=== PATIENT | female | born 1995 | race African-American/Black ===

== ENCOUNTER 2016-10-06 22:25 | Emergency (ER) | payer OTHER, BC ==
[~2016-10-06] VITALS: Ht 165.1 cm; Wt 68.2 kg
[2016-10-06 22:40] VITALS: BP 152/80; PULSE 100; RESP 18; TEMP 99.8; O2SAT 100
[2016-10-06] MEDS ORDERED: TIRO75CA PO (22:40)
[2016-10-06] MEDS ORDERED: SUMA100T2 PO (22:40)
[2016-10-06 22:45] VITALS: BP_SYST 152; BP_DIAS 0; BP_DIAS 90; PULSE 100; RESP 18; O2SAT 100
[2016-10-06 22:53] VITALS: BP 157/86; PULSE 110; RESP 18; O2SAT 100
[2016-10-06] MEDS ORDERED: SODIUM CHLOR 0.9% 1000 ML INJ 1,000 ML IV SCH (23:15)
[2016-10-06] MEDS ORDERED: SODIUM CHLORIDE 0.9% FLUSH 10 ML FLUSH IVF PRN (23:15)
[2016-10-06 23:41] VITALS: BP 139/80; PULSE 108; RESP 18; O2SAT 100
[2016-10-06 23:42] LABS: BLOOD, URINE NEG (NEG); GLUCOSE,URINE NEG (NEG); KETONE, URINE NEG (NEG); NITRITE,URINE NEG (NEG)
[2016-10-06 23:44] LABS: AUTOMATED NEUTROPHIL # 8.8 TH/MM3 (1.8-7.7); BASOPHIL # 0.1 TH/MM3 (0-0.2); BASOPHIL % 0.7 % (0.0-2.0); EOSINOPHIL # 0.1 TH/MM3 (0-0.4); EOSINOPHIL % 1.1 % (0.0-4.0); HEMATOCRIT 37.7 % (35.0-46.0); HEMO FLAGS DIFF FINAL; LYMPH % 11.1 % (9.0-44.0); LYMPHOCYTE # 1.3 TH/MM3 (1.0-4.8); MEAN CELL VOLUME 88.7 FL (80.0-100.0); MEAN CORPUSCULAR HEMOGLOBIN 30.6 PG (27.0-34.0); MEAN CORPUSCULAR HGB CONC 34.5 % (32.0-36.0); MONO % 9.4 % (0.0-8.0); NEUT % 77.7 % (16.0-70.0); PLATELET COUNT 219 TH/MM3 (150-450); RED BLOOD COUNT 4.25 MIL/MM3 (4.00-5.30); RED CELL DISTRIBUTION WIDTH 13.3 % (11.6-17.2); WHITE BLOOD COUNT 11.4 TH/MM3 (4.0-11.0)
[2016-10-06 23:47] LABS: URINE COLOR YELLOW (YELLW/STRAW)
[2016-10-06 23:48] LABS: BACTERIA, URINE MOD /hpf; COMMENT (UR) CULTURE INDICATED; CULTURE IF INDICATED CULTURE INDICATED; RBC, URINE 0-2 /hpf (0-3); WBC, URINE 0-2 /hpf (0-5)
[2016-10-06 23:50] LABS: POTASSIUM 3.5 MEQ/L (3.5-5.1)
[2016-10-06 23:53] LABS: BICARBONATE 27.8 MEQ/L (21.0-32.0); MAGNESIUM 1.9 MG/DL (1.5-2.5)
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
[2016-10-07] MEDS ORDERED: KETOROLAC TROMETHAMINE 30 MG/ML (IVP) VIAL IV PUSH ONE (00:30)
[2016-10-07] MEDS ORDERED: ROBA750T PO (00:30)
[2016-10-07] MEDS ORDERED: MACR100C2 PO (00:33)
[2016-10-07 00:58] VITALS: BP 133/63; PULSE 96; RESP 18; O2SAT 98
[2016-10-07 01:15] VITALS: RESP 18
--- NOTE | 2016-10-07 15:06 | EKG ---
Date Performed: 10/06/2016 Time Performed: 23:23:56 PTAGE: 20 years EKG: SINUS TACHYCARDIA POSSIBLE LEFT ATRIAL ENLARGEMENT ABNORMAL RHYTHM ECG NO PREVIOUS TRACING DOCTOR: Dyan Christensen Interpretating Date/Time 10/07/2016 14:59:31
== END 2016-10-07 01:23 | disposition home or self-care (01) ==
LOC: PHED 22:25
DX: S16.1XXA Strain of muscle, fascia and tendon at neck level, initial encounter (principal); S20.212A Contusion of left front wall of thorax, initial encounter; N39.0 Urinary tract infection, site not specified; B96.89 Other specified bacterial agents as the cause of diseases classified elsewhere; R00.0 Tachycardia, unspecified; V59.40XA Driver of pick-up truck or van injured in collision with unspecified motor vehicles in traffic accident, initial encounter; Y92.414 Local residential or business street as the place of occurrence of the external cause
CPT/HCPCS: 70450; 71010; 72125; 80048; 81001; 83735; 84703; 85025; 87086; 93005; 96361; 96374; 99285; J1885; J7030